=== PATIENT | male | born 1995 | race Caucasian/White ===

== ENCOUNTER → 2024-11-21 | Outpatient (CLI) | payer OTHER, SELFPAY ==
[2024-11-21 12:54] LABS: Hematocrit 42.9 % (40-54); Hemoglobin 14.6 g/dL (13.0-16.5); Immature Granulocytes Count 0.010 X10^3/uL (0.0-0.0); Mean Corp Hgb Conc 34.0 g/dL (32-36); Mean Corpuscular Volume 87.4 fL (80-94); Mean Platelet Vol. 9.3 fl (6.2-12.0); NRBC Flagged by Analyzer 0 % (0-5); Platelet Count 293 K/mm3 (150-450); RBC Distribution Width CV 12.5 % (11.6-14.6); RBC Distribution Width SD 40.0 fl (35.1-43.9); Red Blood Count 4.91 M/mm3 (4.6-6.2); White Blood Count 6.0 K/mm3 (4.4-11.0)
[2024-11-21 13:46] LABS: AST(SGOT) 21 U/L (<=37); Alanine Aminotransfer ALT/SGPT 19 U/L (<=46); Albumin, Serum 4.6 g/dL (3.5-5.0); Alkaline Phosphatase 38 U/L (40-129); Anion Gap 13 (5-15); BUN 14 mg/dL (4-19); BUN/Creat Ratio 13.6 RATIO (10-20); Calcium,Total 9.8 mg/dL (7.6-11.0); Carbon Dioxide 23.1 mmol/L (21.0-32.0); Chloride 105 mmol/L (98-108); Cholesterol 139 mg/dL (<=200); Globulin 2.7 g/dL (2.2-4.2); Glucose 93 mg/dL (70-99); Low Density Lipoprotein Calc. 88 mg/dL; Potassium 4.3 mmol/L (3.3-5.1); Triglycerides 43 mg/dL; Very Low Density Lipoprotein 9 mg/dL (5-40); cholesterol:hdl ratio screen 3.28
== END | disposition home or self-care (01) ==
LOC: MTLAB 10:31
PROVIDERS: PCP Nurse Practitioner Family; Referring Provider Nurse Practitioner Family; Visit Provider Nurse Practitioner Family
DX: Z00.01 Encounter for general adult medical examination with abnormal findings (principal)
CPT/HCPCS: 36415; 80053; 80061; 85025